=== PATIENT | female | born 1960 | race African-American/Black ===

== ENCOUNTER 2021-10-05 23:54 | Emergency (ER) | payer MEDICARE, MEDICAID ==
[2021-10-06] MEDS ORDERED: Ketorolac Tromethamine 30 MG/ML VIAL ONE (00:40)
[2021-10-06] MEDS ORDERED: HYDROcodone/Acetaminophen 5/325 mg Tablet ONE (01:54)
== END 2021-10-06 01:55 | disposition home or self-care (01) ==
LOC: CSHERS 23:54
DX: K08.89 Other specified disorders of teeth and supporting structures (principal); I12.9 Hypertensive chronic kidney disease with stage 1 through stage 4 chronic kidney disease, or unspecified chronic kidney disease; N18.9 Chronic kidney disease, unspecified; E78.5 Hyperlipidemia, unspecified; M10.9 Gout, unspecified
CPT/HCPCS: 96372; 99282; J1885

== ENCOUNTER 2021-10-07 23:05 | Emergency (ER) | payer MEDICARE, MEDICAID ==
[2021-10-08] MEDS ORDERED: Ketorolac Tromethamine 30 MG/ML VIAL ONE (00:25)
== END 2021-10-08 00:36 | disposition home or self-care (01) ==
LOC: CSHERS 23:05
DX: K03.81 Cracked tooth (principal); K02.9 Dental caries, unspecified; I10 Essential (primary) hypertension; E78.5 Hyperlipidemia, unspecified
CPT/HCPCS: 93005; 96372; J1885

== ENCOUNTER 2021-10-14 01:15 | Emergency (ER) | payer MEDICARE, MEDICAID ==
[2021-10-14] MEDS ORDERED: Ketorolac Tromethamine 30 MG/ML VIAL ONE (01:46)
== END 2021-10-14 01:35 | disposition home or self-care (01) ==
LOC: CSHERS 01:15
DX: K02.9 Dental caries, unspecified (principal); I12.9 Hypertensive chronic kidney disease with stage 1 through stage 4 chronic kidney disease, or unspecified chronic kidney disease; N18.9 Chronic kidney disease, unspecified; E78.5 Hyperlipidemia, unspecified
CPT/HCPCS: 96372; 99283; J1885

== ENCOUNTER 2021-10-17 04:50 | Emergency (ER) | payer MEDICARE, MEDICAID | END 2021-10-17 05:26 | disposition home or self-care (01) | LOC: CSHERS 04:50 | DX: K03.81 Cracked tooth (principal); I12.9 Hypertensive chronic kidney disease with stage 1 through stage 4 chronic kidney disease, or unspecified chronic kidney disease; N18.9 Chronic kidney disease, unspecified | CPT/HCPCS: 99283 ==

== ENCOUNTER 2024-04-09 15:50 | Emergency (ER) | payer MEDICARE | END 2024-04-09 18:50 | disposition home or self-care (01) | LOC: CSHERS 15:50 | DX: J20.9 Acute bronchitis, unspecified (principal); I12.9 Hypertensive chronic kidney disease with stage 1 through stage 4 chronic kidney disease, or unspecified chronic kidney disease; N18.9 Chronic kidney disease, unspecified; Z99.2 Dependence on renal dialysis | CPT/HCPCS: 71045; 87428 ==

== ENCOUNTER 2025-01-09 10:22 | Outpatient (CLI) | payer OTHER, MEDICAID | END 2025-01-09 10:23 | disposition home or self-care (01) | LOC: CSHMAMMO 10:22 | PROVIDERS: ATTEND Family Medicine | DX: Z13.820 Encounter for screening for osteoporosis (principal); Z78.0 Asymptomatic menopausal state; M85.852 Other specified disorders of bone density and structure, left thigh | CPT/HCPCS: 77080 ==

== ENCOUNTER 2025-01-09 21:21 | Emergency (ER) | payer OTHER, MEDICAID ==
[2025-01-09 22:20] LABS: #Basophils Less than 0.03 10x3/uL (0.0-0.2); #Eosinophils 0.22 10x3/uL (0.0-0.5); #Monocytes 0.73 10x3/uL (0.0-1.1); #Neutrophils 6.38 10x3/uL (1.5-8.4); %Basophils 0.1 % (0.0-2.0); %Eosinophils 2.2 % (0.0-6.0); %Lymphocytes 27.0 % (18.0-47.0); %Monocytes 7.2 % (0.0-10.0); %Neutrophils 63.1 % (40.0-75.0); Hematocrit 33.8 % (34.9-44.5); Hemoglobin 11.0 g/dL (12.0-15.5); Mean Corpuscular Hemoglobin 34.1 pg (27.0-33.0); Mean Corpuscular Volume 104.6 fL (81.6-98.3); Platelet Count 231 10x3/uL (150-450); Red Blood Cell (RBC) Count 3.23 10x6/uL (3.90-5.03); White Blood Cell (WBC) Count 10.11 10x3/uL (3.5-10.5)
[2025-01-09 22:28] LABS: Anion Gap 20 mmol/L (10-20); BUN (Urea Nitrogen) 69 mg/dL (9.8-20.1); Calc. Creatinine Clearance 0 mL/min (70-130); Calcium 10.1 mg/dL (7.8-10.44); Carbon Dioxide 23 mmol/L (23-31); Chloride 99 mmol/L (98-107); Glucose 119 mg/dL (80-115); Potassium 3.7 mmol/L (3.5-5.1); Sodium 138 mmol/L (136-145)
[2025-01-09] MEDS ORDERED: Nitroglycerin 2% Ointment 1 INCH/1 GM Packet ONE (22:39)
== END 2025-01-10 00:01 | disposition short-term general hospital (02) ==
LOC: CSHERS 21:21
DX: J81.0 Acute pulmonary edema (principal); I12.0 Hypertensive chronic kidney disease with stage 5 chronic kidney disease or end stage renal disease; N18.6 End stage renal disease; R09.02 Hypoxemia; E78.5 Hyperlipidemia, unspecified; Z99.2 Dependence on renal dialysis; Z79.899 Other long term (current) drug therapy
CPT/HCPCS: 36415; 71045; 80048; 85025; 93005